=== PATIENT | female | born 1995 | race Caucasian/White ===

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

== ENCOUNTER 2017-01-01 05:11 | Inpatient (IN) | payer MEDICAID ==
[~2017-01-01] VITALS: Ht 160 cm; Wt 126.6 kg
[2017-01-01] MEDS ORDERED: PRENATAL COMPLE1 TAB PO (05:34)
[2017-01-01] MEDS ORDERED: ALDOMET250 MG PO (05:35)
[2017-01-01] MEDS ORDERED: CELEXA20 MG PO (05:35)
[2017-01-01 05:36] VITALS: BP 143/84; Ht 160 cm; Wt 126.6 kg
[2017-01-01 07:07] LABS: HEMATOCRIT 35.6 % (36.0-48.0); HEMOGLOBIN 11.5 g/dL (12-16); MCH 24.4 pg (26.0-34.0); MCHC 32.3 g/dL (31.0-37.0); MCV 75.6 fL (80.0-100.0); MEAN PLATELET VOLUME 9.9 fL (7.4-10.4); RBC 4.71 10x6/uL (4.00-5.40); RDW 16.3 % (11.5-14.5)
[2017-01-01 07:08] LABS: WBC 14.5 10x3/uL (4.8-10.8)
[2017-01-01 07:30] LABS: APPEARANCE SLT CLOUDY (CLEAR); BILIRUBIN NEGATIVE (NEGATIVE); COLOR YELLOW (YELLOW); GLUCOSE NEGATIVE (NEGATIVE); KETONE SMALL mg/dL (NEGATIVE); LEUKOCYTE ESTERASE 2+ (NEGATIVE); NITRITE POSITIVE (NEGATIVE); PROTEIN TRACE mg/dL (NEGATIVE); RED CELLS - URINE RARE /hpf (0-5); SPECIFIC GRAVITY 1.015 (1.005-1.020); UROBILINOGEN NORMAL (NORMAL)
[2017-01-01 07:31] LABS: BACTERIA MANY /hpf (NONE SEEN); MUCUS <1+ /lpf (NONE SEEN)
[2017-01-02 07:25] LABS: RAPID PLASMA REAGIN Non Reactive (Non Reactive)
--- NOTE | 2017-01-02 13:14 | NUR ---
1313 VIABLE BABY BOY DELIVERED CORD BLOOD AND GASES DRAWN AND SENT OUT, RENITA.
--- NOTE | 2017-01-02 14:13 | NUR ---
FUNDUS AT UMBILLICUS, MIDLINE, FIRM. MINIMAL LOCHIA.
[2017-01-02 19:45] VITALS: BP 138/83
--- NOTE | 2017-01-02 19:45 | NUR ---
SHIFT ASSESSMENT COMPLETED. PT SITTING IN SEMI FOWLERS POSITION HOLDING . S/O TAKE INFANT FOR SHIFT ASSESSMENT. RESP CLEAR AND EQUAL BILATERALLY, REG AND UNLABORED AT THIS TIME. BOWEL SOUNDS PRESENT AND ACTIVE X4 QUADRANTS. PT REPORTS THAT SHE HAS BEEN PASSING FLATUS AND HAVING DIARRHEA SINCE . INCONTINENT OF SMALL AMT STOOL, CHUX CHANGED, PERINUM CLEANSED. VSS. FUNDUS FIRM, U2 WITH MODERATE AMT RUBRA LOCHIA. NEW PERIPAD PLACED. PT REQUESTS TO TURN TO BACK AT THIS TIME ALSO. PILLOW REMOVED FROM BEHIND BACK. I&O DONE. DTRS 2+. DRSG TO LOWER BIKINI LINE INCISION INTACT WITH AREAS OF DRAINAGE MARKED. NEW ICE PACK APPLIED TO INCISION. SCD'S ON BLE. PT EDUCATED ON IMPORTANCE OF COUGHING AND DEEP BREATHING, VERBALIZED UNDERSTANDING. S/O AT BEDSIDE AND VERY ATTENTIVE AND SUPPORTIVE TO PT. PAIN 5/10, DENIES NEED FOR ADDITIONAL INTERVENTION. ENCOURAGED PT TO USE CURTAIN HEMMER AUTOMATIC PRN PAIN, VERBALIZED UNDERSTANDING. BED IN LOW POSITION WITH UPPER SIDE RAILS RAISED X2. CL AND PHONE WITHIN REACH. WILL CONT TO MONITOR AND ASSIST PRN.
[2017-01-02 19:52] LABS: BASOPHILS 0.1 % (0-2); EOSINOPHILS 0 % (0-7); HEMATOCRIT 30.6 % (36.0-48.0); IMMATURE GRANULOCYTES 0.4 % (0-5); LYMPHOCYTES 7.5 % (15-50); MCH 24.5 pg (26.0-34.0); MCHC 32.7 g/dL (31.0-37.0); MEAN PLATELET VOLUME 9.3 fL (7.4-10.4); MONOCYTES 3.8 % (2-11); NEUTROPHILS 88.2 % (40-80); PLATELET COUNT 294 10x3/uL (130-400); RBC 4.08 10x6/uL (4.00-5.40); RDW 16.2 % (11.5-14.5)
[2017-01-02 19:57] LABS: WBC 18.5 10x3/uL (4.8-10.8)
[2017-01-02 21:01] VITALS: BP 164/90
--- NOTE | 2017-01-02 21:01 | NUR ---
PT AAOX3, CONVERSING WITH VISITORS. RESPIR REGULAR, UNLABORED, CLEAR, AND EQUAL BILATERALLY. I&O DONE. RN INSTRUCTED PT ON USE INCENTIVE SPIROMETER AND SPLINTING WITH MOVEMENT WITH RETURN DEMONSTRATION FROM PT. ICE WATER GIVEN. DTR 2+. ASSISTED PT WITH MOVING UP IN BED, TOLERATED WELL. PAIN 5/10 FOLLOWING ACTIVITY. PT DENIES NEEDS AT THIS TIME. BED IN LOW POSITION WITH UPPER SIDE RAILS RAISED X2. CL AND PHONE WITHIN REACH. S/O REMAINS AT BEDSIDE.
[2017-01-02 22:14] VITALS: BP 145/86
--- NOTE | 2017-01-02 22:14 | NUR ---
PT SITTING IN SEMIFOWLERS POSITION BONDING WITH INFANT. RESP REGULAR UNLABORED, CLEAR AND EQUAL BILATERALLY. I&O DONE, DTR'S 2+. PT AAOX3. NEW ICE PACK PLACED TO INCISION. DRSG REMAINS INTACT WITH NO NEW DRAINAGE NOTED. PERIPADS CHANGED, PERINUM CLEANSED WITH WASH CLOTH, SMALL AMT RUBRA LOCHIA NOTED TO PERIPAD, NO CLOTS. PAIN 5/10, AIRFIELD SERVICES OFFICER PUSHED WITH RN AT BEDSIDE. DENIES NEEDS AT THIS TIME. BED IN LOW POSITION WITH UPPER SIDE RAILS RAISED X2. CL AND PHONE WITHIN REACH. WILL CONT TO MONITOR AND ASSIST PRN.
[2017-01-02 23:30] VITALS: BP 126/68
--- NOTE | 2017-01-02 23:30 | NUR ---
PT IN SEMIFOWLERS POSITION BONDING WITH INFANT. VSS. RESP REGULAR AND UNLABORED WITH CLEAR AND EQUAL BREATH SOUNDS BILATERALLY. DTRS 2+, AAO X3. I&O DONE. PT DENIES NEEDS AT THIS TIME. PAIN 09/23, PT REPORTS THAT SHE DOESN'T LIKE TO USE PAIN MEDICATION VERY OFTEN BECAUSE IT MAKES HER SLEEPY AND SHE WANTS TO FRANCIS WITH INFANT. S/O AT BEDSIDE, VERY SUPPORTIVE AND ATTENTIVE TO PT. BED IN LOW POSITION WITH UPPER SIDE RAILS RAISED X2. CL AND PHONE WITHIN REACH..
[2017-01-03] VITALS (9 sets, daily range): BP systolic 117–137; BP diastolic 56–81
--- NOTE | 2017-01-03 00:50 | NUR ---
RN TO BEDSIDE. DRT 2+. RESPIRATION REGULAR AND UNLABORED, BREATH SOUNDS CLEAR AND EQUAL BILATERALLY. I&O DONE. CHUX AND PERIPAD CHANGE, PERINUM CLEANSED. INCENTIVE SPIROMETER USED X10, COUGH AND DEEP BREATHING DONE WITH GOOD EFFORT. SCD'S REMAIN ON BLE. VSS. FUNDUS REMAINS FIRM U2, SMALL AMT RUBRA LOCHIA TO PERIPAD. NO CLOTS PRESENT. DRSG REMAINS INTACT, NO NEW DRAINAGE NOTED TO BANDAGED. PT POSITIONED TO LEFT SIDE WITH PILLOW PLACED BEHIND BACK FOR COMFORT AND SUPPORT. BED IN LOW POSITION WITH UPPER SIDE RAILS RAISED X2. CL AND PHONE WITHIN REACH. WILL CONT TO MONITOR AND ASSIST PRN.
--- NOTE | 2017-01-03 01:50 | NUR ---
ROUNDS MADE. PT RESTING QUIETLY WITH EYES CLOSED. RESPIRATIONS REGULAR AND UNLABORED, BREATH SOUNDS REMAIN CLEAR AND EQUAL. I&O DONE. VSS. DTR 2+. ALERT AND ORIENTED X3 UPON AWAKING. S/O BONDING WITH AT THIS TIME. ICE WATER GIVEN, DENIES ADDITIONAL NEEDS AT THIS TIME. BED IN LOW POSITION WITH UPPER SIDE RAILS RAISED X2. CL AND PHONE WITHIN REACH. WILL CONT TO MONITOR AND ASSIST PRN.
--- NOTE | 2017-01-03 02:50 | NUR ---
HOURLY ROUNDS MADE. PT RESTING WITH EYES CLOSED UPON ENTERING ROOM. RESPIRATIONS REGULAR AND UNLABORED, NO S/S OF DISTRESS NOTED. I&O DONE, DTRS 2+, ALERT AND ORIENTED X3. VSS. PT REPOSITIONED TO RIGHT SIDE WITH PILLOW PLACED BEHIND BACK FOR COMFORT AND SUPPORT AND BETWEEN KNEES. NEW ICE PACK TO INCISION. INCENTIVE SPIROMETER USED X10. COUGHING AND DEEP BREATHING DONE WITH GOOD EFFORT. BED IN LOW POSITION WITH UPPER SIDE RAILS RAISED X2. CL AND PHONE WITHIN REACH. PT DENIES PAIN AT THIS TIME, STATE STATES THAT PRINTED CIRCUIT BOARD REWORKER IS WORKING WELL FOR PAIN CONTROL.
--- NOTE | 2017-01-03 03:59 | NUR ---
PT RESTING WITH EYES CLOSED UPON RN ENTERING ROOM, OPENS EYES. A&O X3. DTR'S REMAIN 2+, RESPIRATIONS REGULAR AND UNLABORED, CLEAR AND EQUAL BILATRALLY. PT DENIES PAIN AT THIS TIME. VSS. DENIES NEEDS AT THIS TIME. S/O REMAINS AT BEDSIDE. CL AND PHONE WITHIN REACH. WILL CONT TO MONITOR AND ASSIST PRN.
--- NOTE | 2017-01-03 04:58 | NUR ---
PT RESTING WITH EYES CLOSED UPON ENTERING ROOM. RESPIRATIONS REGULAR AND UNLABORED. PT AWOKE, A&OX3. BREATH SOUNDS CLEAR AND EQUAL BILATERALLY. I&O DONE. PAIN 3/10, PT USED COFFIN MAKER PRIOR TO TURNING. COUGHING, DEEP BREATHING, AND INCENTIVE SPIROMETER DONE X10. PT REPOSITIONED FROM LEFT SIDE TO BACK. PT REPORTS THAT SHE FEELS SHE NEEDS TO PEE. CATH NOT DRAINING, REPOSITIONED BEDOLLA WITH IMMEDIATE RETURN OF 300 MLS OF CLEAR LIGHT YELLOW URINE. PT VERBALIZED RELIEF OF NEEDING TO VOID FOLLOWING REPOSITIONING OF BEDOLLA. CHUX AND PERIPADS CHANGED, SMALL AMT RUBRA LOCHIA TO PERIPADS, NO CLOTS PRESENT. PERINUM CLEANSED. ICE WATER GIVEN, PT DENIES ADDITIONAL NEEDS. S/O REMAINS IN ROOM ON COUCH RESTING WITH EYES CLOSED. BED IN LOW POSITION WITH UPPER SIDE RAILS RAISED X2. CL AND PHONE WITHIN REACH.
--- NOTE | 2017-01-03 06:01 | NUR ---
BEDSIDE ROUNDS MADE. PT AA&O X3, CURRENTLY LOOKING AT CELL PHONE. DTRS 2+. RESPIRATIONS REGULAR, UNLABORED, CLEAR, AND EQUAL. I&O DONE. VSS. ICE WATER GIVEN. NEW ICE PACK APPLIED TO ABD. COUGH AND DEEP BREATHING DONE WITH GOOD EFFORT. INCENTIVE SPIROMETER USED X10. DENIES PAIN AT THIS TIME. S/O REMAINS AT BEDSIDE RESTING WITH EYES CLOSED ON COUCH. BED IN LOW POSITION WITH UPPER SIDE RAILS RAISED X2. CL AND PHONE WITHIN REACH. WILL CONT TO MONITOR.
[2017-01-03 06:19] LABS: BASOPHILS 0.1 % (0-2); EOSINOPHILS 0.9 % (0-7); HEMATOCRIT 30.3 % (36.0-48.0); HEMOGLOBIN 9.7 g/dL (12-16); IMMATURE GRANULOCYTES 0.2 % (0-5); LYMPHOCYTES 16.6 % (15-50); MCH 24.1 pg (26.0-34.0); MCV 75.4 fL (80.0-100.0); MEAN PLATELET VOLUME 9.4 fL (7.4-10.4); MONOCYTES 7.4 % (2-11); NEUTROPHILS 74.8 % (40-80); PLATELET COUNT 299 10x3/uL (130-400); RBC 4.02 10x6/uL (4.00-5.40); RDW 16.3 % (11.5-14.5); WBC 14.6 10x3/uL (4.8-10.8)
--- NOTE | 2017-01-03 07:10 | NUR ---
RECEIVED PT LYING SUPINE IN BED. WAKES UPON ENTERING ROOM. VSS. HRRR WITHOUT AUDIBLE MURMUR. BBS CLEAR. BS X 4. ABDOMEN SOFT. FUNDUS FIRM AT U/U. RUBRA LOCHIA SCANT AMT. PERIPAD CHANGED. ABDOMINAL INCISION WITH PERIPAD. NO REDNESS, SWELLING OR DRAINAGE NOTED TO INCISION. NEG HOMANS' SIGN. PPP. DTR'S 1+/1+. 2+/2+ NON-PITTING EDEMA NOTED BLE. SCDS ON BLE. PUMP ON. BEDOLLA TO GRAVITY DRAINING CLEAR, YELLOW URINE. PIV OF NS WITH PITOCIN INFUSING AT 50 ML/HR. MAGNESIUM TURNED OFF PER ORDERS. DILAUDID GENETIC PHYSICIAN INFUSING ORDERED. PT STATES PAIN MEDICATION RELIEVING PAIN. REGULAR DIET SERVED. SR UPX2. CALL LIGHT IN REACH.
--- NOTE | 2017-01-03 08:20 | NUR ---
PIV CONVERTED TO SALINE LOCK. BEDOLLA DC'D WITH 350 ML OF CLEAR, YELLOW URINE NOTED IN BAG. NORCO 10/325 AND MOTRIN 600 MG GIVEN PO ORDERED FOR PAIN. PT INSTRUCTED ON MEDS. VERBALIZES UNDERSTANDING. PT STATES DESIRE TO AMB AFTER PAIN MEDS START HELPING WITH PAIN.
--- NOTE | 2017-01-03 09:00 | NUR ---
PT SITTING UP IN BED. CARING FOR INFANT WITH MUCH WARMTH SHOWN. STATES NO C/O PAIN.
--- NOTE | 2017-01-03 09:30 | NUR ---
PT OOB AND AMB TO BR. VOIDS 400 ML OF BLOOD-TINGED URINE. PERICARE DONE PER PT. PANTIES AND PAD ON. GOWN CHANGED. PT BACK TO BED. MARK ACTIVITY WELL.
--- NOTE | 2017-01-03 11:00 | NUR ---
PT SITTING UP IN BED. VISITS WITH FAMILY. DENIES NEEDS OR C/O.
--- NOTE | 2017-01-03 12:53 | NUR ---
PT C/O INCISIONAL PAIN OF "4" ON 0-10 PAIN SCALE. NORCO 10/325 GIVEN PO ORDERED. PT INSTRUCTED ON MED. VERBALIZES UNDERSTANDING.
--- NOTE | 2017-01-03 13:55 | NUR ---
PT LYING SUPINE IN BED. WAKES UPON ENTERING ROOM. VSS. DENIES PAIN OR NEEDS.
--- NOTE | 2017-01-03 15:55 | NUR ---
PT OOB AND AMB TO BR TO VOID. 400 ML OF BLOOD-TINGED URINE NOTED IN SPECIPAN. PERICARE DONE PER PT. PT AMB BACK TO BED. MARK ACTIVITY WELL.
--- NOTE | 2017-01-03 16:05 | NUR ---
PT C/O INCISIONAL PAIN OF "5" ON 0-10 PAIN SCALE. IBUPROFEN 600 MG GIVEN PO ORDERED.
--- NOTE | 2017-01-03 17:22 | NUR ---
PT SITTING UP IN BED. HOLDS WITH MUCH WARMTH SHOWN. VSS. PT DENIES NEEDS OR C/O.
--- NOTE | 2017-01-03 19:40 | NUR ---
To room for PM assessment and VS. Pt also requested PRN pain med. See EMAR for medical staff manager. Reports scant-small vag bleeding with no clots. Reports voiding without difficulty. Fundus 1FB below umbillicus and midline. Firm without massage. Is drinking fluids PO and tolerating well. Encouraged ambulation. Reports passing gas. No other needs or concerns voiced.
--- NOTE | 2017-01-03 22:30 | NUR ---
PT MOVED TO 1257. AMBULATORY WITH NURSE AT SIDE. ORIENTED TO ROOM AND CALL SYSTEM. PROVIDED LINENS FOR SHOWERING. S/O WILL ASSIST WITH SHOWER. PROVIDED ADDITIONAL PADS AND MESH PANTIES. INSTRUCTED TO CALL FOR ANY OTHER NEEDS. DENIES PAIN AT THIS TIME.
--- NOTE | 2017-01-03 23:04 | NUR ---
Pt in shower with assistance of s/o. Denies any needs.
[2017-01-04 00:01] VITALS: BP 117/71
--- NOTE | 2017-01-04 00:01 | NUR ---
To room for VS. Pt reports pain 6/10 and request pain med. See EMAR for occupational medicine physician. Also provided fresh ice water per pt request. No other needs voiced. C/L in reach. Bed low. SR upx2.
--- NOTE | 2017-01-04 01:00 | NUR ---
Pt resting with eyes closed. No needs voiced.
--- NOTE | 2017-01-04 03:00 | NUR ---
Pt sleeping. S/O in room. Call light in reach. NAD noted
[2017-01-04 05:20] VITALS: BP 138/88
--- NOTE | 2017-01-04 05:20 | NUR ---
In room to obtain VS. Pt sleeping. Wakes with ease. Asks for prn pain med. See EMAR for clinical medical assistant. Denies any other needs or concerns. Reports voiding without difficulty. Vag bleeding scant with no clots.
--- NOTE | 2017-01-04 07:10 | NUR ---
ASSUMED CARE OF THIS PATIENT. CURRENTLY SLEEPIN IN SEMIFOWLERS POSITION. RESPIRATIONS EVEN. SIDE RAILS UP X 2, CALL LIGHT IN REACH. VISITOR SLEEPING ON COUCH AND INFANT IN NURSERY. WILL COMPLETE SHIFT ASSESSMENT WHEN PT IS AWAKE. ANTICIPATE DC HOME TODAY WITH INFANT.
[2017-01-04 08:37] VITALS: BP 146/103
[2017-01-04 08:38] VITALS: BP 145/92
--- NOTE | 2017-01-04 08:43 | NUR ---
SITTING UP IN BED. IN CRIB. SHIFT ASSESSMENT COMPLETED. 1/U FIRM, SMALL CLOT NOTED AT INTROITUS. HAS NOT BEEN OOB SINCE "LAST NIGHT". NEEDS TO VOID. UP TO BR, VOIDED PASSED SMALL TO MOD SIZED CLOT, LOCHIA SMALL. CLEAN PAD ON AND PAD COVERING INCISION. SCANT SEROUS DRAINAGE NOTED RIGHT SIDE OF LTCS INCISION. CAROLYNN INTACT. BREAST AND BOTTLE FEEDING. NON-SMOKER. CONSIDERING TDAP PRIOR TO DC, DENIES PAIN AT THIS TIME. FOB IN ROOM SIDE RAILS UP X2, CALL LIGHT IN REACH. REGULAR BREAKFAST TRAY BEDSIDE. PLANS TO EAT AT THIS TIME.
--- NOTE | 2017-01-04 10:35 | NUR ---
SITTING UP IN CHAIR HOLDING . DENIES NEEDING ANYTHING OTHER THAN ICE WATER. NO ADDITIONAL REQUESTS, WAITING ON OB TO ARRIVE. FOB IN ROOM.
--- NOTE | 2017-01-04 11:22 | NUR ---
DR TURPIN HERE. NOTIFIED OF BPS FROM YESTERDAY THROUGHOUT THE NIGHT AND THIS AM.
--- NOTE | 2017-01-04 12:33 | NUR ---
PT DESIRES TDAP AFTER READING IMMUNIZATION INFORMATION. TDAP GIVEN LEFT DELTOID WITHOUT DIFF.
--- NOTE | 2017-01-04 12:50 | NUR ---
DRESSED AND READY TO GO. SALINE LOCK DC'D WITH TIP INTACT. 3/10 ON PAIN SCALE FOLLOWING EARLY MOTRIN. INSTRUCTED NEXT DOSE CAN BE TAKEN AT 5:00 PM. DC TEACHING COMPLETED INCLUDING VERBAL AND WRITTEN INFORMATION ON POST-OP CARE, PP DEPRESSION, BREAST/BOTTLEFEEDING, BREAST CARE, S&S INFECTION, MEDICATION INFECTION, COMMUNITY RESOURCES AND CAR SAFETY. TO CALL FRIDAY TO SCHEDULE STAPLE REMOVAL AND 2 WK PP VISIT. ALSO TO MONITOR BP PER DR TURPIN'S REQUEST AND TAKE ALDOMET INDICATED. RECOMMEND MAKING F/U APPOINTMENT WITH PRIMARY PROVIDER FOR ADDITIONAL F/U. VERBALIZED UNDERSTANDING OF INSTRUCTIONS. NO REQUESTS. WAITING ON INFANT DC. WITH PRIMARY
--- NOTE | 2017-01-04 14:40 | NUR ---
DC'D VIA WHEELCHAIR TO CAR. IN CARSEAT. ALL BELONGINGS REMOVED FROM ROOM. PATIENT HAS DC INSTRUCTIONS AND PRESCRIPTIONS FOR MOTRIN AND NORCO. FOB DRIVING CAR.
== END 2017-01-04 14:40 | disposition home or self-care (01) | DRG 765 ==
LOC: D.LD 05:11
PROVIDERS: ADMIT Obstetrics & Gynecology
PROC: 10907ZC Drainage of Amniotic Fluid, Therapeutic from Products of Conception, Via Natural or Artificial Opening (ICD-10-PCS; principal; 2017-01-02 12:15)
PROC: 10D00Z1 Extraction of Products of Conception, Low, Open Approach (ICD-10-PCS; principal; 2017-01-02 12:15)
DX: O14.14 Severe pre-eclampsia complicating childbirth (principal); N39.0 Urinary tract infection, site not specified; O10.213 Pre-existing hypertensive chronic kidney disease complicating pregnancy, third trimester; I12.9 Hypertensive chronic kidney disease with stage 1 through stage 4 chronic kidney disease, or unspecified chronic kidney disease; N18.9 Chronic kidney disease, unspecified; O75.3 Other infection during labor; O99.214 Obesity complicating childbirth; O99.344 Other mental disorders complicating childbirth; F32.9 Major depressive disorder, single episode, unspecified; O61.0 Failed medical induction of labor; Z3A.37 37 weeks gestation of pregnancy; Z37.0 Single live birth

== ENCOUNTER 2017-04-08 08:20 | Emergency (ER) | payer MEDICAID ==
[2017-01-01 05:36] VITALS: BMI 49.5
[~2017-04-08 08:20] MED LIST: ALDOMET250 MG PO; CELEXA20 MG PO; PRENATAL COMPLE1 TAB PO
[2017-04-08 09:17] LABS: BASOPHILS 0.2 % (0-2); EOSINOPHILS 0.1 % (0-7); HEMATOCRIT 35.6 % (36.0-48.0); HEMOGLOBIN 11.4 g/dL (12-16); IMMATURE GRANULOCYTES 0.1 % (0-5); LYMPHOCYTES 7.6 % (15-50); MCH 22.9 pg (26.0-34.0); MCV 71.5 fL (80.0-100.0); MEAN PLATELET VOLUME 10.1 fL (7.4-10.4); MONOCYTES 1.9 % (2-11); NEUTROPHILS 90.1 % (40-80); RBC 4.98 10x6/uL (4.00-5.40); RDW 17.8 % (11.5-14.5); WBC 16.1 10x3/uL (4.8-10.8)
[2017-04-08 09:19] LABS: PLATELET COUNT 475 10x3/uL (130-400)
[2017-04-08 09:26] LABS: ALBUMIN 3.2 g/dL (3.4-5.0); ALKALINE PHOSPHATASE 138 U/L (46-116); ALT (SGPT) 25 U/L (10-68); AMYLASE - SERUM 28 U/L (25-115); BILIRUBIN - TOTAL 0.39 mg/dL (0.2-1.3); CALC OSMOLALITY 278 mosm/kg (275-300); CALCIUM 9.5 mg/dL (8.5-10.1); CHLORIDE - SERUM 101 mmol/L (98-107); CREATININE - SERUM 0.8 mg/dL (0.6-1.3); GLUCOSE 116 mg/dL (74-106); LIPASE 87 U/L (73-393); POTASSIUM - SERUM 3.9 mmol/L (3.5-5.1); PROTEIN - SERUM 7.9 g/dL (6.4-8.2); SODIUM 139 mmol/L (136-145); UREA NITROGEN 13 mg/dL (7-18); eGFR NON AFRICAN AMERICAN > 90 mL/min (90-120)
[2017-04-08 09:47] LABS: HCG URINE NEGATIVE (NEGATIVE)
[2017-04-08 10:00] LABS: APPEARANCE CLEAR (CLEAR); COLOR YELLOW (YELLOW); GLUCOSE NEGATIVE (NEGATIVE); KETONE MODERATE mg/dL (NEGATIVE); NITRITE NEGATIVE (NEGATIVE); PROTEIN NEGATIVE (NEGATIVE)
[2017-04-08 10:01] LABS: BACTERIA MODERATE /hpf (NONE SEEN); BILIRUBIN NEGATIVE (NEGATIVE); EPITHELIAL CELLS 0-5 /hpf (0-5); MUCUS <1+ /lpf (NONE SEEN); UROBILINOGEN NORMAL (NORMAL); WHITE CELLS - URINE OCC /hpf (0-5)
== END 2017-04-08 14:45 | disposition home or self-care (01) ==
LOC: D.ER 08:20
PROVIDERS: Emergency Medicine
DX: D73.4 Cyst of spleen (principal); R10.9 Unspecified abdominal pain

== ENCOUNTER 2017-09-18 10:52 | Inpatient (IN) | payer MEDICAID ==
[~2017-09-18] VITALS: Ht 160 cm; Wt 113.4 kg
--- NOTE | ~2017-09-18 | DS ---
PATIENT:ELYSIA GRANDE :[birth year] MEDICAL RECORD: [id number] DISCHARGE SUMMARY ADMISSION DATE: 09/18/17 DISCHARGE DATE: 09/19/17 DATE OF ADMISSION: 09/19/2017. DATE OF DISCHARGE: 09/19/2017. ADMISSION DIAGNOSES: 1. Acute cholecystitis. 2. Morbid obesity. 3. Depression. DISCHARGE DIAGNOSES: 1. Acute cholecystitis. 2. Morbid obesity. 3. Depression. PROCEDURE: Laparoscopic cholecystectomy. CONSULTATIONS: None. REPORT OF HOSPITALIZATION: The patient was admitted to the hospital through the ER with acute cholecystitis. The patient was given IV antibiotics and taken to the operating room for a laparoscopic cholecystectomy. She tolerated the procedure well and was discharged home postoperatively. DISCHARGE INSTRUCTIONS: Return to clinic or call if any questions or concerns, fevers, chills, nausea, vomiting, or worsening abdominal pain. ACTIVITIES: No heavy lifting or straining for 2 weeks. FOLLOWUP: In clinic with me in 2-3 weeks. DISCHARGE MEDICATIONS: Resume home medications with the inclusion of meperidine 25 mg p.o. q.4 hours p.r.n. TRANSINT:[id number] Voice Confirmation ID: [id number] DOCUMENT ID: [id number] NERIS BOSTON MD at 1409 CC: [id number] DICTATION DATE: 10/17/17 1129 CLEAN ENERGY POLICY ANALYST: 10/17/17 1545 DIS IN 09/19/17 [id number] [place] [address]
--- NOTE | ~2017-09-18 | OP ---
PATIENT NAME: ELYSIA GRANDE MEDICAL RECORD: [id number] :[birth year] LOCATION:[id number] ADMISSION DATE:09/18/17 SURGEON: ERIC BOSTON MD DATE OF OPERATION: 09/19/2017 PREOPERATIVE DIAGNOSES: 1. Acute cholecystitis. 2. Depression. 3. Morbid obesity. POSTOPERATIVE DIAGNOSES: 1. Acute cholecystitis. 2. Depression. 3. Morbid obesity. PROCEDURE: Laparoscopic cholecystectomy. SURGEON: Eric Boston MD REPORT OF PROCEDURE: The patient's abdomen was prepped and draped in sterile fashion. A cutdown was made in the midline just above the umbilicus. Electrocautery was used to dissect through the subcutaneous tissues, 0 Vicryls were placed on the fascia bilaterally and the fascia was incised with 15-blade. I then bluntly entered the peritoneal cavity and placed a 12-mm Yesenia port. Under direct visualization, a 5-mm trocar was placed in the epigastrium and 2 more 5-mm trocars were placed in the right subcostal region. The gallbladder was grasped and elevated. There was noted to be acute inflammatory changes present, but no adhesions. The cystic artery and cystic duct were dissected free and these were clipped proximally and distally and ligated in standard fashion. The gallbladder was taken off the liver bed using electrocautery and placed in the right upper quadrant. In order to remove the gallbladder, we actually had to open up a rim of tissue around the liver where the gallbladder was extending into the liver itself. Any bleeding from the liver bed was then treated with electrocautery. The gallbladder was then placed into an EndoCatch bag and removed through the umbilical incision. At this point, the ports and insufflation were removed. The umbilical fascia was closed with interrupted 0 Vicryls times 3. The wounds were then irrigated out with normal saline and infused with 10 mL of 0.25% Marcaine with epinephrine. The skin incisions were all closed with subcutaneous 5-0 Monocryl and dressed appropriately. COMPLICATIONS: None. CONDITION: Stable. ANESTHESIA: General endotracheal and local. BLOOD LOSS: Minimal. TRANSINT:[id number] Voice Confirmation ID: [id number] DOCUMENT ID: [id number] OPERATIVE REPORT [id number] ELYSIA GRANDE ERIC BOSTON MD at 5062 CC: [id number] DICTATION DATE: 09/19/17 1400 LABORATORY TECHNOLOGIST: 09/19/17 1409 DIS IN 09/19/17 [facility] [address] [id number]
[2017-09-18 11:30] LABS: BASOPHILS 0.3 % (0-2); EOSINOPHILS 2.7 % (0-7); HEMATOCRIT 38.4 % (36.0-48.0); HEMOGLOBIN 12.5 g/dL (12-16); IMMATURE GRANULOCYTES 0.1 % (0-5); LYMPHOCYTES 39.9 % (15-50); MCHC 32.6 g/dL (31.0-37.0); MCV 73.8 fL (80.0-100.0); MONOCYTES 5.9 % (2-11); NEUTROPHILS 51.1 % (40-80); RDW 17.2 % (11.5-14.5); WBC 7.1 10x3/uL (4.8-10.8)
[2017-09-18 11:44] LABS: PLATELET COUNT 357 10x3/uL (130-400)
[2017-09-18 11:53] LABS: ALBUMIN 3.4 g/dL (3.4-5.0); ALKALINE PHOSPHATASE 143 U/L (46-116); ALT (SGPT) 35 U/L (10-68); AMYLASE - SERUM 30 U/L (25-115); CALC OSMOLALITY 280 mosm/kg (275-300); CARBON DIOXIDE 26.4 mmol/L (21.0-32.0); CHLORIDE - SERUM 106 mmol/L (98-107); CREATININE - SERUM 0.7 mg/dL (0.6-1.3); GLUCOSE 88 mg/dL (74-106); LIPASE 95 U/L (73-393); PROTEIN - SERUM 7.8 g/dL (6.4-8.2); SODIUM 142 mmol/L (136-145); UREA NITROGEN 10 mg/dL (7-18); eGFR NON AFRICAN AMERICAN > 90 mL/min (90-120)
[2017-09-18 11:56] LABS: APPEARANCE HAZY (CLEAR); BILIRUBIN NEGATIVE (NEGATIVE); COLOR YELLOW (YELLOW); GLUCOSE NEGATIVE (NEGATIVE); KETONE NEGATIVE (NEGATIVE); NITRITE NEGATIVE (NEGATIVE); PROTEIN NEGATIVE (NEGATIVE); SPECIFIC GRAVITY 1.015 (1.005-1.020); UROBILINOGEN NORMAL (NORMAL)
[2017-09-18 11:57] LABS: HCG SERUM NEGATIVE (NEGATIVE)
[2017-09-18] MEDS ORDERED: ORTHO TRI-7 DAYSX1 PO (18:49)
[2017-09-18] MEDS ORDERED: OMEPRAZOLE20 M1 PO (18:49)
[2017-09-18 21:48] VITALS: BP 144/92
[2017-09-19 01:33] VITALS: BMI 44.3
[2017-09-19 02:26] VITALS: BP 145/78
[2017-09-19 04:28] VITALS: BP 131/82
[2017-09-19 08:02] VITALS: Ht 160 cm; Wt 113.4 kg
[2017-09-19 09:48] VITALS: BP 139/82
[2017-09-19] MEDS ORDERED: DILAUDID2 MG PO (13:49)
[2017-09-19] MEDS ORDERED: MEPERIDINE HCL50 MG PO (14:01)
[2017-09-19 14:40] VITALS: BP 157/88
== END 2017-09-19 18:26 | disposition home or self-care (01) | DRG 418 ==
LOC: D.ER 10:52 → D.MS 16:31 → D.EDHOLD 16:31 → D.MS 17:45
PROVIDERS: Emergency Medicine; Surgery
PROC: 0FT44ZZ Resection of Gallbladder, Percutaneous Endoscopic Approach (ICD-10-PCS; principal; 2017-09-19 10:45)
DX: K80.00 Calculus of gallbladder with acute cholecystitis without obstruction (principal); Z68.41 Body mass index [BMI] 40.0-44.9, adult; E66.01 Morbid (severe) obesity due to excess calories; F32.9 Major depressive disorder, single episode, unspecified; K21.9 Gastro-esophageal reflux disease without esophagitis

== ENCOUNTER 2018-05-22 20:58 | Emergency (ER) | payer MEDICAID ==
[~2018-05-22] VITALS: Ht 160 cm; Wt 113.6 kg
[~2018-05-22 20:58] MED LIST changes: +DILAUDID2 MG PO; +MEPERIDINE HCL50 MG PO; +OMEPRAZOLE20 M1 PO; +ORTHO TRI-7 DAYSX1 PO
[2018-05-22 21:05] VITALS: Ht 160 cm; Wt 113.6 kg
[2018-05-22] MEDS ORDERED: LEXAPRO20 MG PO (21:07)
[2018-05-22] MEDS ORDERED: NORCO 7.5/325 T1 TA1 (21:08)
[2018-05-22] MEDS ORDERED: ALDOMET250 MG (21:08)
[2018-05-22] MEDS ORDERED: TORADOL10 MG PO (23:10)
[2018-05-22] MEDS ORDERED: CLEOCIN HCL300 MG PO (23:10)
[2018-05-22 23:48] VITALS: BP 154/94
== END 2018-05-22 23:48 | disposition home or self-care (01) ==
LOC: D.ER 20:58
DX: T81.41XA Infection following a procedure, superficial incisional surgical site, initial encounter (principal); Y83.8 Other surgical procedures as the cause of abnormal reaction of the patient, or of later complication, without mention of misadventure at the time of the procedure; I10 Essential (primary) hypertension; F32.9 Major depressive disorder, single episode, unspecified

== ENCOUNTER 2019-02-19 18:51 | Emergency (ER) | payer MEDICAID ==
[~2019-02-19] VITALS: Ht 160 cm; Wt 124.5 kg
[~2019-02-19 18:51] MED LIST changes: +ALDOMET250 MG; +CLEOCIN HCL300 MG PO; +LEXAPRO20 MG PO; +NORCO 7.5/325 T1 TA1; +TORADOL10 MG PO
[2019-02-19 19:07] VITALS: Ht 160 cm; Wt 124.5 kg
[2019-02-19] MEDS ORDERED: DICLOFENAC SODI50 MG PO (19:50)
[2019-02-19 20:11] VITALS: BP 132/88
== END 2019-02-19 20:12 | disposition home or self-care (01) ==
LOC: D.ER 18:51
DX: S83.92XA Sprain of unspecified site of left knee, initial encounter (principal); W01.0XXA Fall on same level from slipping, tripping and stumbling without subsequent striking against object, initial encounter; I10 Essential (primary) hypertension; F32.9 Major depressive disorder, single episode, unspecified

== ENCOUNTER → 2019-03-04 12:54 | Outpatient (CLI) | payer MEDICAID ==
[2019-02-19 19:07] VITALS: BMI 48.6
[~2019-03-04 12:54] MED LIST changes: +DICLOFENAC SODI50 MG PO
== END | disposition home or self-care (01) ==
LOC: D.MRI 12:54
PROVIDERS: ATTEND Orthopaedic Surgery
DX: M25.562 Pain in left knee (principal)

== ENCOUNTER 2019-08-09 11:22 | Emergency (ER) | payer MEDICAID ==
[~2019-08-09] VITALS: Ht 160 cm; Wt 124.3 kg
[2019-08-09 11:33] VITALS: Ht 160 cm; Wt 124.3 kg
[2019-08-09 13:09] LABS: BILIRUBIN NEGATIVE (NEGATIVE); GLUCOSE NEGATIVE (NEGATIVE); KETONE NEGATIVE (NEGATIVE); NITRITE NEGATIVE (NEGATIVE); UROBILINOGEN NORMAL (NORMAL)
[2019-08-09 13:13] LABS: BACTERIA FEW /hpf (NEGATIVE); EPITHELIAL CELLS 0-5 /hpf (0-5); RED CELLS - URINE NONE SEEN /hpf (0-5); WHITE CELLS - URINE 0-5 /hpf (NEGATIVE)
[2019-08-09 14:02] LABS: HCG URINE NEGATIVE (NEGATIVE)
[2019-08-09 15:16] VITALS: BP 149/100
== END 2019-08-09 15:15 | disposition home or self-care (01) ==
LOC: D.ER 11:22
PROVIDERS: Family Medicine
DX: S39.012A Strain of muscle, fascia and tendon of lower back, initial encounter (principal); I10 Essential (primary) hypertension

== ENCOUNTER 2020-09-01 20:10 | Emergency (ER) | payer MEDICAID ==
[~2020-09-01] VITALS: Ht 160 cm; Wt 106.4 kg
[~2020-09-01 20:10] MED LIST changes: +VOLTAREN75 MG PO
[2020-09-01 20:16] VITALS: BP 153/105; Ht 160 cm; Wt 106.4 kg
[2020-09-01 21:05] LABS: BASOPHILS 0.2 % (0-2); EOSINOPHILS 0.5 % (0-7); HEMATOCRIT 36.9 % (36.0-48.0); HEMOGLOBIN 11.7 g/dL (12-16); IMMATURE GRANULOCYTES 0.2 % (0-5); LYMPHOCYTE ABS# 2.58 10x3/uL (1.18-3.74); LYMPHOCYTES 20.7 % (15-50); MCH 22.9 pg (26.0-34.0); MCHC 31.7 g/dL (31.0-37.0); MCV 72.2 fL (80.0-100.0); MEAN PLATELET VOLUME 10.1 fL (7.4-10.4); MONOCYTES 8.7 % (2-11); NEUTROPHIL ABS# 8.68 10x3/uL (1.56-6.13); NEUTROPHILS 69.7 % (40-80); PLATELET COUNT 304 10x3/uL (130-400); RBC 5.11 10x6/uL (4.00-5.40); WBC 12.5 10x3/uL (4.8-10.8)
[2020-09-01 21:12] LABS: CALC OSMOLALITY 276 mosm/kg (275-300); CALCIUM 8.9 mg/dL (8.5-10.1); CARBON DIOXIDE 23.4 mmol/L (21.0-32.0); CHLORIDE - SERUM 105 mmol/L (98-107); CREATININE - SERUM 0.7 mg/dL (0.6-1.3); GLUCOSE 85 mg/dL (74-106); POTASSIUM - SERUM 3.4 mmol/L (3.5-5.1); SODIUM 139 mmol/L (136-145); UREA NITROGEN 12 mg/dL (7-18); eGFR NON AFRICAN AMERICAN > 90 mL/min (90-120)
[2020-09-01 21:18] LABS: ALBUMIN 3.3 g/dL (3.4-5.0); ALKALINE PHOSPHATASE 103 U/L (30-120); ALT (SGPT) 20 U/L (10-68); PROTEIN - SERUM 7.2 g/dL (6.4-8.2)
== END 2020-09-01 23:40 | disposition left against medical advice (07) ==
LOC: D.ER 20:10
PROVIDERS: Family Medicine
DX: E87.6 Hypokalemia (principal); R42 Dizziness and giddiness; I10 Essential (primary) hypertension; Z53.29 Procedure and treatment not carried out because of patient's decision for other reasons